=== PATIENT | male | born 1990 | race Caucasian/White ===

== ENCOUNTER 2020-08-02 15:34 | Emergency (ER) | payer BC, SELFPAY ==
[2020-08-02 15:55] VITALS: BP 149/79; PULSE 75; RESP 18; TEMP 36.4; O2SAT 100; BMI 35.9
--- NOTE | 2020-08-02 16:14 | HMH.EDUTC ---
[facility] [place] Clinical Impression: Dog bite Qualifiers: Encounter type: initial encounter Qualified Code(s): W54.0XXA - Bitten by dog, initial encounter Disposition: Home, Self-Care Condition on Discharge: Good Instructions: DI for Dog Bite, Amoxicillin and Clavulanic Acid Additional Instructions: Keep wound area clean and dry and cover with non-stick bandage if you are going to be outside Clean with antibacterial soap and water and pat dry Take antibiotics as prescribed Return if needed Straight to ER if any life threatening symptoms Follow up with Family Doctor if needed Prescriptions: Amoxicillin/Potassium Clav [Augmentin 500mg tab] 500 mg PO TID #21 tab Transmission Status: Pending to [facility] Referrals: Provider,Referral, MD [Primary Care Provider] - As needed Time of Disposition: 16:21 Medical Decision Making - Michael Inquiry Pt receiving controlled substance: No Michael was queried for this patient: No Vital Signs: 08/02/20 15:55 Temperature 97.5 F L Temperature Source Oral Pulse Rate [Right] 75 Respiratory Rate 18 Blood Pressure [Right Arm] 149/79 H Blood Pressure Mean [Right Arm] 102 Blood Pressure Source [Right Arm] Automatic Cuff Blood Pressure Position [Right Arm] Sitting 02 Sat by Pulse Oximetry 100 Medical Decision Narrative: wound cleaned well with hibacleanse and saline [facility] [place] - General Stated complaint: [id number]@1200 dog bite right forearm Time Seen by Provider: 08/02/20 16:15 Mode of Arrival: Ambulatory Source of Information: Patient Limitations: No Limitations Description of Symptoms (Recalled from Triage Doc. by RN): pt states he was bitten by a dog yesterday around noon. pt works in [employer] and was at a clients house. he says the dog, ran up and grabbed me with his mouth. pt states it was unprovoked and not aggressive. pt has an opening under his R forearm. 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 [employer] State that he was at a clients house yesterday when he was bitten on his right forearm States that he cleaned it up and put some neosporin on it States that he was unsure when his last tetanus was so he thought he better come in and get one see if he may need antibiotics - Related Data Previous Rx's Medication Instructions Recorded Colchicine 0.6 mg PO Q1H PRN #3 tablet 01/01/18 Amoxicillin/Potassium Clav 500 mg PO TID #21 tab 08/02/20 [Augmentin 500mg tab] Allergies Allergy/AdvReac Type Severity Reaction Status Date / Time No Known Allergies Allergy Verified 01/01/18 09:57 - Worker's Comp Is this a Worker's Comp case?: No [facility] History - Hepatitis A Screen Drug use history?: No High risk sexual behaviors?: No History of sexually transmitted infection?: No Currently employed?: No Childcare worker?: No Do you have indoor plumbing?: Yes Do you have electricity?: Yes Attestation statement:: This patient has been screened for Hepatitis A risk factors. I have reviewed the patient's past medical history: Yes Other Surgeries: Yes: No Previous Surgery - Social History Alcohol Intake: never ROS Obtained: Yes All systems reviewed & no additional complaints, Yes Systems reviewed as appropriate & no additional complaints - Constitutional Constitutional: Reports system reviewed and no additional complaints, except as docu - ENT Ears, Nose, Mouth, and Throat: Reports system reviewed and no additional complaints, except as docu - Cardiovascular Cardiovascular: Reports system reviewed and no additional complaints, except as docu - Respiratory Respiratory: Reports system reviewed and no additional complaints, except as docu
[2020-08-02 16:52] VITALS: BP 143/82; PULSE 76; RESP 16; TEMP 36.4
== END 2020-08-02 16:52 | disposition home or self-care (01) ==
PROVIDERS: Emergency Provider Nurse Practitioner
DX: S51.831A Puncture wound without foreign body of right forearm, initial encounter (principal); W54.0XXA Bitten by dog, initial encounter
CPT/HCPCS: 96372; 99202; G0463

== ENCOUNTER 2021-04-14 11:41 | Emergency (ER) | payer BC, SELFPAY ==
[2021-04-14 11:54] VITALS: BP 156/82; PULSE 92; RESP 20; TEMP 36.4; O2SAT 95; BMI 39.5
--- NOTE | 2021-04-14 12:09 | HMH.EDUTC ---
[facility] [place] Dis[place] Clinical Impression: Viral syndrome, Bronchitis Sinusitis Qualifiers: Sinusitis location: unspecified location Chronicity: acute Recurrence: non-recurrent Qualified Code(s): J01.90 - Acute sinusitis, unspecified Disposition: Home, Self-Care Condition on Discharge: Good Instructions: Acute Bronchitis, DI for Sinusitis, DI for Acute Bronchitis, DI for Viral Syndrome, DI for COVID-19 (Suspected or Confirmed ), Preventing the Spread of Coronavirus Discharge Instructions Additional Instructions: Drink plenty of fluids. Take tylenol or ibuprofen for pain or fever. Take the medications as directed. Follow up with your regular doctor. GO TO THE ER FOR ANY WORSENING SYMPTOMS You need to be covid-19 tested. Your symptoms seem like viral symptoms and covid-19 is going around really bad right now. So, it is likely that you have been exposed to it. Prescriptions: Brompheniramine/Pseudoephed/Dm [Bromfed Dm Cough Syrup] 5 ml PO Q6HP PRN #240 ml PRN Reason: Cough Transmission Status: Received by [facility] methylPREDNISolone [Medrol] 4 mg PO DIRECTED 6 Days #21 packet Transmission Status: Received by [facility] Azithromycin [Z-Curtis 250mg Tab*] 250 mg PO UD DOSE PK #6 tab Transmission Status: Received by [facility] Referrals: Provider,Referral, [Primary Care Provider] - Forms: Work/School Release Time of Disposition: 13:22 Medical Decision Making - Medical Records Medical records reviewed: No: I reviewed the patient's medical records. - Michael Inquiry Pt receiving controlled substance: No Vital Signs: 04/14/21 11:54 04/14/21 12:55 Temperature 97.6 F 97.6 F Temperature Source Temporal Artery Scan Pulse Rate 92 H Pulse Rate [Left] 92 H Respiratory Rate 20 20 Blood Pressure 156/82 H Blood Pressure [Right Arm] 156/82 H Blood Pressure Mean [Right Arm] 106 02 Sat by Pulse Oximetry 95 - Lab Data Lab Results 04/14/21 11:56: Group A Strep Rapid Negative Orders (Tests/Meds): ORDERS Category Date Time Status Strep Screen Confirmation Stat Micro 04/14/21 11:56 Received Medical Decision Narrative: He adamantly refused covid-19 testing or any viral testing. [facility] [place] HPI - General Stated complaint: sinus, ESCOBAR, chest congestion, sore throat Time Seen by Provider: 04/14/21 12:09 Mode of Arrival: Ambulatory Source of Information: Patient Limitations: No Limitations Description of Symptoms (Recalled from Triage Doc. by RN): pt c/o sinus pressure. fever, chest congestion, sore throat, cough and ESCOBAR. x1 wk HEENT Symptoms (Recalled from RN notes): Yes Resp Symptoms (Recalled from RN notes): Yes Skin Symptoms (Recalled from RN notes): No MS Symptoms (Recalled from RN notes): No Functional Status (Recalled from RN notes): wnl - History of Present Illness Provider Complaint: He states that he has had low grade fever, chills, body aches, chest congestion, a nonproductive cough, sore throat and he has felt bad for the past week. He has felt progressively worse as time went on. He has been running a low grade fever too. He has not been vaccinated against covid-19. - Related Data Previous Rx's Medication Instructions Recorded Colchicine 0.6 mg PO Q1H PRN #3 tablet 01/01/18 Amoxicillin/Potassium Clav 500 mg PO TID #21 tab 08/02/20 [Augmentin 500mg tab] Azithromycin [Z-Curtis 250mg Tab*] 250 mg PO UD DOSE PK #6 tab 04/14/21 Brompheniramine/Pseudoephed/Dm 5 ml PO Q6HP PRN #240 ml 04/14/21 [Bromfed Dm Cough Syrup] methylPREDNISolone [Medrol] 4 mg PO DIRECTED 6 Days #21 04/14/21 packet Allergies Allergy/AdvReac Type Severity Reaction Status Date / Time No Known Allergies Allergy Verified 01/01/18 09:57 - Worker's Comp Is this a Worker's Comp case?: No [facility] History - Hepatitis A Screen Drug use history?: No High risk sexual behaviors?: No History of sexually transmitted infection?: No Currently employed
[2021-04-14 12:20] LABS: Strep Scrn Group A (Rapid) Negative (Negative)
[2021-04-14 12:55] VITALS: BP 156/82; PULSE 92; RESP 20; TEMP 36.4
== END 2021-04-14 13:36 | disposition home or self-care (01) ==
PROVIDERS: Emergency Provider Nurse Practitioner Family
DX: J20.9 Acute bronchitis, unspecified (principal); J01.90 Acute sinusitis, unspecified; B34.9 Viral infection, unspecified
CPT/HCPCS: 87430; 99202; G0463

== ENCOUNTER → 2021-04-15 11:04 | Outpatient (CLI) | payer BC, SELFPAY | PROVIDERS: Visit Provider Nurse Practitioner | DX: Z20.822 Contact with and (suspected) exposure to COVID-19 (principal) | CPT/HCPCS: C9803; U0003; U0005 ==

== ENCOUNTER 2021-06-04 10:49 | Emergency (ER) | payer BC, SELFPAY ==
[2021-06-04 11:12] VITALS: BP 154/92; PULSE 103; RESP 20; O2SAT 97; BMI 36.3
--- NOTE | 2021-06-04 11:23 | XR_ITS ---
FINAL REPORT CLINICAL HISTORY: fall, pt fell on a large rock c/o lt knee pain FINDINGS: LEFT ANKLE Three views of the left ankle were obtained. There is no acute fracture or dislocation. The joint spaces and mortise are intact. There is no soft tissue abnormality. IMPRESSION: No acute bony abnormality. Reviewed, Interpreted and Dictated by Solomon Orr III, MD Transcribed by Queta Kang Authenticated by Solomon Orr III, MD on 06/04/2021 12:37:07 PM [facility]
--- NOTE | 2021-06-04 11:23 | XR_ITS ---
FINAL REPORT CLINICAL HISTORY: fall, pt fell on a large rock c/o lt knee pain FINDINGS: LEFT TIBIA FIBULA 2 views were obtained. There is no acute fracture or dislocation. The visualized joint spaces are intact. There is no soft tissue abnormality. IMPRESSION: No acute fracture Reviewed, Interpreted and Dictated by Solomon Orr III, MD Transcribed by Queta Kang Authenticated by Solomon Orr III, MD on 06/04/2021 12:37:08 PM [facility]
--- NOTE | 2021-06-04 11:23 | XR_ITS ---
FINAL REPORT CLINICAL HISTORY: fall, pt fell on a large rock c/o lt knee pain FINDINGS: Three views of the left knee reveal no evidence of fracture or dislocation. The bony alignment is normal. The joint spaces are preserved. There is a moderate joint effusion. IMPRESSION: Moderate joint effusion without acute abnormality identified. Reviewed, Interpreted and Dictated by Solomon Orr III, MD Transcribed by Queta Kang Authenticated by Solomon Orr III, MD on 06/04/2021 12:37:10 PM [facility]
[2021-06-04 11:26] VITALS: BP 148/101; PULSE 86; RESP 18; TEMP 36.7; O2SAT 95; BMI 36.3
--- NOTE | 2021-06-04 12:17 | HMH.EDUTC ---
[facility] [place] Dis[place] Clinical Impression: Left knee sprain Qualifiers: Encounter type: initial encounter Involved ligament of knee: unspecified ligament Qualified Code(s): S83.92XA - Sprain of unspecified site of left knee, initial encounter Disposition: Home, Self-Care Condition on Discharge: Good Instructions: How to Use Crutches, Knee Sprain, DI for Knee Sprain, How to Use a Knee Immobilizer Additional Instructions: Rest the extremity, apply ice for 15 minutes as tolerated three or four times per day, Elevate the extremity as tolerated while you are resting. Take ibuprofen for pain. Follow up with Dr. Escobar (orthopedics). I put in a referral but you need to call his office and schedule an appointment. Follow up with your regular doctor. GO TO THE ER FOR ANY WORSENING SYMPTOMS Prescriptions: Ibuprofen [Ibuprofen 800mg Tablet] 800 mg PO Q8HP PRN #30 tab PRN Reason: Moderate Pain Transmission Status: Received by [facility] Referrals: Provider,MD Marie [Primary Care Provider] - Richmond Escobar MD [Staff Physician] - Medical Decision Making - Medical Records Medical records reviewed: Yes: I reviewed the patient's medical records. - Michael Inquiry Pt receiving controlled substance: No Vital Signs: 06/04/21 11:12 06/04/21 11:26 06/04/21 13:00 Temperature 98.1 F 98.1 F Temperature Source Oral Oral Pulse Rate 86 Pulse Rate [Left Radial] 103 H 86 Respiratory Rate 20 18 19 Blood Pressure 148/95 H Blood Pressure [Right Arm] 154/92 H 148/101 H Blood Pressure Mean [Right Arm] 112 116 Blood Pressure Source Automatic Cuff Blood Pressure Source [Right Arm] Automatic Cuff Automatic Cuff Blood Pressure Position Sitting Blood Pressure Position [Right Arm] Sitting Sitting 02 Sat by Pulse Oximetry 97 95 Oxygen Delivery Method Room Air Room Air Room Air - Lab Data Lab results reviewed: Yes: I reviewed the patient's lab results. [facility] [place] HPI - General Stated complaint: AO fall 05/28 lt knee pain Time Seen by Provider: 06/04/21 12:18 Mode of Arrival: Ambulatory Source of Information: Patient Limitations: No Limitations Description of Symptoms (Recalled from Triage Doc. by RN): Pt states that fell on left knee. Swollen from knee down HEENT Symptoms (Recalled from RN notes): No Resp Symptoms (Recalled from RN notes): No Skin Symptoms (Recalled from RN notes): No MS Symptoms (Recalled from RN notes): Yes Functional Status (Recalled from RN notes): n/a - History of Present Illness Provider Complaint: He states that he fell 1 week ago and came down on his left knee. He states that since then he has had left knee pain and swelling. He is able to walk on it, but bearing weight causes it hurt worse. - Related Data Previous Rx's Medication Instructions Recorded Colchicine 0.6 mg PO Q1H PRN #3 tablet 01/01/18 Ibuprofen [Ibuprofen 800mg 800 mg PO Q8HP PRN #30 tab 06/04/21 Tablet] Allergies Allergy/AdvReac Type Severity Reaction Status Date / Time No Known Allergies Allergy Verified 06/04/21 11:31 - Worker's Comp Is this a Worker's Comp case?: No [facility] History - Hepatitis A Screen Drug use history?: No High risk sexual behaviors?: No History of sexually transmitted infection?: No Currently employed?: No Childcare worker?: No Do you have indoor plumbing?: Yes Do you have electricity?: Yes Attestation statement:: This patient has been screened for Hepatitis A risk factors. I have reviewed the patient's past medical history: Yes Other Surgeries: Yes: No Previous Surgery - Social History Alcohol Intake: never ROS Obtained: Yes All systems reviewed & no additional complaints - Constitutional Constitutional: Denies chills, Denies fever(s) - Musculoskeletal Musculoskeletal: Reports as per HPI - Integumentary/Breasts Skin/Breast: Denies redness, Denies rash, Denies wounds - Neurologic Neurologic: Denies tingling/numbness/burning sensati
[2021-06-04 13:00] VITALS: BP 148/95; PULSE 86; RESP 19; TEMP 36.7; O2SAT 95
== END 2021-06-04 13:00 | disposition home or self-care (01) ==
PROVIDERS: Emergency Provider Nurse Practitioner Family
DX: S83.92XA Sprain of unspecified site of left knee, initial encounter (principal); W01.0XXA Fall on same level from slipping, tripping and stumbling without subsequent striking against object, initial encounter; Y92.9 Unspecified place or not applicable
CPT/HCPCS: 29505; 73562; 73590; 73610; 99212; G0463

== ENCOUNTER 2021-08-14 14:12 | Emergency (ER) | payer BC, SELFPAY ==
[2021-08-14 14:27] VITALS: BP 151/92; PULSE 73; RESP 17; TEMP 36.8; O2SAT 96; BMI 38.2
--- NOTE | 2021-08-14 15:05 | HMH.EDUTC ---
[facility] [place] Disposition Clinical Impression: Gout attack Qualifiers: Gout site: wrist Gout etiology: unspecified cause Laterality: right Qualified Code(s): M10.9 - Gout, unspecified Disposition: Home, Self-Care Condition on Discharge: Good Instructions: Gout, DI for Gout, Colchicine Additional Instructions: Take medication as prescribed Follow up with your Family Doctor for daily treatment for gout prevention Return if needed Straight to ER if any life threatening symptoms Prescriptions: Colchicine [Colcrys 0.6mg tablet] 0.6 mg PO DIRECTED #6 tab Transmission Status: Received by [facility] Referrals: Provider,Referral, [Primary Care Provider] - As needed Time of Disposition: 15:19 Medical Decision Making - Michael Inquiry Pt receiving controlled substance: No Michael was queried for this patient: No Vital Signs: 08/14/21 14:27 08/14/21 15:29 Temperature 98.2 F 98.2 F Temperature Source Oral Pulse Rate 73 Pulse Rate [Left Radial] 73 Respiratory Rate 17 17 Blood Pressure 151/92 H Blood Pressure [Right Arm] 151/92 H Blood Pressure Mean [Right Arm] 111 02 Sat by Pulse Oximetry 96 - Lab Data Lab results reviewed: Yes: I reviewed the patient's lab results. Lab Results 08/14/21 14:35: Uric Acid 11.0 H Orders (Tests/Meds): ED MEDICATIONS Discontinued Medications Generic Name Dose Route Start Last Admin Trade Name Mesha PRN Reason Stop Dose Admin Ketorolac Tromethamine 60 mg 08/14/21 15:15 08/14/21 15:27 Ketorolac 60mg/2ml Vial IM 08/14/21 15:16 60 mg ONCE ONE Administration Methylprednisolone Sodium Succinate 125 mg 08/14/21 15:15 08/14/21 15:28 Methylprednisolone Sod Succ 125mg Vial IM 08/14/21 15:16 125 mg ONCE ONE Administration [facility] [place] HPI - General Stated complaint: rt wrist pain Time Seen by Provider: 08/14/21 14:35 Description of Symptoms (Recalled from Triage Doc. by RN): patient comes in with right wrist pain that began friday HEENT Symptoms (Recalled from RN notes): No Resp Symptoms (Recalled from RN notes): No Skin Symptoms (Recalled from RN notes): No MS Symptoms (Recalled from RN notes): Yes Functional Status (Recalled from RN notes): wnl - History of Present Illness Provider Complaint: Patient states that he has been having pain in his right wrist since Friday with no injury States that feels like it does when he has gout States that hurts with movement swollen and red - Related Data Previous Rx's Medication Instructions Recorded Colchicine 0.6 mg PO Q1H PRN #3 tablet 01/01/18 Ibuprofen [Ibuprofen 800mg 800 mg PO Q8HP PRN #30 tab 06/04/21 Tablet] Colchicine [Colcrys 0.6mg tablet] 0.6 mg PO DIRECTED #6 tab 08/14/21 Allergies Allergy/AdvReac Type Severity Reaction Status Date / Time No Known Allergies Allergy Verified 06/04/21 11:31 - Worker's Comp Is this a Worker's Comp case?: No [facility] History - Hepatitis A Screen Attestation statement:: This patient has been screened for Hepatitis A risk factors. I have reviewed the patient's past medical history: Yes Other Surgeries: Yes: No Previous Surgery - Social History Alcohol Intake: never ROS Obtained: Yes All systems reviewed & no additional complaints, Yes Systems reviewed as appropriate & no additional complaints - Constitutional Constitutional: Reports system reviewed and no additional complaints, except as docu, Denies body ache, Denies chills, Denies fever(s) - ENT Ears, Nose, Mouth, and Throat: Reports system reviewed and no additional complaints, except as docu - Cardiovascular Cardiovascular: Reports system reviewed and no additional complaints, except as docu - Respiratory Respiratory: Reports system reviewed and no additional complaints, except as docu - Gastrointestinal Gastrointestingal: Reports: system reviewed and no additional complaints, except as docu - Musculoskeletal Musculoskeletal: Reports system reviewed and no a
[2021-08-14 15:29] VITALS: BP 151/92; PULSE 73; RESP 17; TEMP 36.8
== END 2021-08-14 15:39 | disposition home or self-care (01) ==
PROVIDERS: Emergency Provider Nurse Practitioner
DX: M10.9 Gout, unspecified (principal); M25.531 Pain in right wrist; Z79.1 Long term (current) use of non-steroidal anti-inflammatories (NSAID)
CPT/HCPCS: 84550; 99213; G0463

== ENCOUNTER 2021-09-26 11:56 | Emergency (ER) | payer BC, SELFPAY ==
[2021-09-26 12:37] VITALS: BP 140/80; PULSE 82; RESP 19; TEMP 37; O2SAT 98; BMI 36.6
--- NOTE | 2021-09-26 12:41 | HMH.EDUTC ---
[facility] [place] Disposition Clinical Impression: Sinusitis Qualifiers: Sinusitis location: unspecified location Chronicity: unspecified Qualified Code(s): J32.9 - Chronic sinusitis, unspecified Gout attack Qualifiers: Gout site: unspecified site Gout etiology: unspecified cause Qualified Code(s): M10.9 - Gout, unspecified Disposition: Home, Self-Care Condition on Discharge: Good Instructions: Sinusitis, Gout, DI for Sinusitis, DI for Gout Additional Instructions: *Monitor Temp, Over the counter Motrin or Tylenol as directed/as needed Tylenol every 4 hours and Motrin every 6 hours (as long as your family doctor has told you that you can take it) for fever or pain. and straight to ER if unable to lower temp less than 101.0 after medication given *Warm salt water gargles may help to soothe the throat *Throat Lozenges *Warm fluids like tea with honey may help to soothe the throat *Sleep elevated *Humidifier/Vaporizer Take medication as prescribed Follow up IMMEDIATELY for new or worsening symptoms or no Noticeable improvement over the next 48-72 hours. 911 for difficulty breathing or swallowing Prescriptions: Indomethacin 50 mg PO TID #15 cap [facility] methylPREDNISolone [Medrol 4mg tab] 4 mg PO DIRECTED #21 tab [facility]: [facility] Azithromycin [Z-Curtis 250mg Tab] 250 mg PO DIRECTED #6 tab Transmission Status: Pending to [facility] Referrals: Provider,Referral, [Primary Care Provider] - Time of Disposition: 13:02 Medical Decision Making - Michael Inquiry Pt receiving controlled substance: No Michael was queried for this patient: No Vital Signs: 09/26/21 12:37 Temperature 98.6 F Temperature Source Oral Pulse Rate [Left] 82 Respiratory Rate 19 Blood Pressure [Right Arm] 140/80 Blood Pressure Mean [Right Arm] 100 02 Sat by Pulse Oximetry 98 Medical Decision Narrative: Patient declined blood work states that he is out of his indomethacin for gout and feels like he is having a flare in right ankle [facility] [place] HPI - General Stated complaint: sore throat, cough Time Seen by Provider: 09/26/21 12:41 Mode of Arrival: Ambulatory Source of Information: Patient Limitations: No Limitations Description of Symptoms (Recalled from Triage Doc. by RN): patient comes in for gout in right ankle since friday. sinus pressure and cough that began friday HEENT Symptoms (Recalled from RN notes): Yes Resp Symptoms (Recalled from RN notes): Yes Skin Symptoms (Recalled from RN notes): No MS Symptoms (Recalled from RN notes): Yes Functional Status (Recalled from RN notes): n/a - History of Present Illness Provider Complaint: Patient states that he is having flare up from gout and is out of his indomethacin also states that he has also been having sinus pain and pressure that has continued to get worse over the last few days and feels like he has a sinus infection - Related Data Previous Rx's Medication Instructions Recorded Colchicine 0.6 mg PO Q1H PRN #3 tablet 01/01/18 Ibuprofen [Ibuprofen 800mg 800 mg PO Q8HP PRN #30 tab 06/04/21 Tablet] Colchicine [Colcrys 0.6mg tablet] 0.6 mg PO DIRECTED #6 tab 08/14/21 Azithromycin [Z-Curtis 250mg Tab] 250 mg PO DIRECTED #6 tab 09/26/21 Indomethacin 50 mg PO TID #15 cap 09/26/21 methylPREDNISolone [Medrol 4mg 4 mg PO DIRECTED #21 tab 09/26/21 tab] Allergies Allergy/AdvReac Type Severity Reaction Status Date / Time No Known Allergies Allergy Verified 09/26/21 12:39 - Worker's Comp Is this a Worker's Comp case?: No [facility] History - Hepatitis A Screen Attestation statement:: This patient has been screened for Hepatitis A risk factors. I have reviewed the patient's past medical history: Yes Other Surgeries: Yes: No Previous Surgery - Social History Alcohol Intake: never ROS Obtained: Yes All systems reviewed & no additional complaints, Yes Systems r
[2021-09-26 13:03] VITALS: BP 140/80; PULSE 82; RESP 19; TEMP 37
== END 2021-09-26 13:07 | disposition home or self-care (01) ==
PROVIDERS: Emergency Provider Nurse Practitioner
DX: J32.9 Chronic sinusitis, unspecified (principal); M10.9 Gout, unspecified
CPT/HCPCS: 99212; G0463

== ENCOUNTER 2021-11-06 17:50 | Emergency (ER) | payer BC, SELFPAY ==
--- NOTE | 2021-11-06 19:25 | EXP.UTC ---
Discharge Plan Disposition Patient Disposition: Home, Self-Care Condition: Good Prescriptions Prescriptions: New methylprednisolone 4 mg Tablets,Dose Pack 4 mg PO DIRECTED Qty: 21 0RF No Action azithromycin 250 MG tablet 250 mg PO DIRECTED Qty: 6 0RF Rx Instructions: Take two (2) tablets on day #1, then one (1) tablet day #2 thru #5 methylprednisolone 4 MG tablet 4 mg PO DIRECTED Qty: 21 0RF Rx Instructions: Take as directed on package instructions indomethacin 50 MG capsule 50 mg PO TID Qty: 15 0RF Rx Instructions: as needed for gout colchicine 0.6 MG tablet 0.6 mg PO Q1H PRN (Reason: Moderate Pain) Qty: 3 0RF Rx Instructions: as needed for left elbow gout attack ibuprofen 800 MG tablet 800 mg PO Q8HP PRN (Reason: Moderate Pain) Qty: 30 0RF colchicine 0.6 MG tablet 0.6 mg PO DIRECTED Qty: 6 0RF Rx Instructions: Take 2 tablets (1.2mg) now followed by 1 tablet (0.6mg) 1 hour later. May repeat treatment in 72 hours if still having symptoms Referrals Follow up/Referrals: Provider,Referral, MD [Primary Care Provider] - See instructions Activity Restrictions/Add. Instructions Additional Instructions/Restrictions: Drink plenty of fluids. Take the medications as directed. Follow up with your regular doctor. GO TO THE ER FOR ANY WORSENING SYMPTOMS Clinical Impressions Clinical Impression: Gout Instructions Patient Instructions: Marc DI for Gout Discharge ED Provider: Gabriel Frank [facility] General Stated complaint: gout Time Seen by Provider: 11/06/21 19:25 History of Present Illness Provider Complaint: He c/o left wrist pain for the past 2 days. He denies any injury. He states that he has a history of gout and that is what he is having at this time. Related Data Previous Rx's Medication Instructions Recorded colchicine 0.6 mg tablet 0.6 mg PO Q1H PRN Moderate Pain #3 01/01/18 tabs ibuprofen 800 mg tablet 800 mg PO Q8HP PRN Moderate Pain 06/04/21 #30 tabs colchicine 0.6 mg tablet 0.6 mg PO DIRECTED #6 tabs 08/14/21 azithromycin 250 mg tablet 250 mg PO DIRECTED #6 tabs 09/26/21 indomethacin 50 mg capsule 50 mg PO TID #15 caps 09/26/21 methylprednisolone 4 mg tablet 4 mg PO DIRECTED #21 tabs 09/26/21 methylprednisolone 4 mg tablets in 4 mg PO DIRECTED #21 tabs 11/06/21 a dose pack Allergies Allergy/AdvReac Type Severity Reaction Status Date / Time No Known Allergies Allergy Verified 11/06/21 19:33 PFSH [facility] Social History Smoking Status: Never smoker alcohol intake: never current occupational status: unemployed Travel in the last 8 weeks: None ROS Obtained: Yes All systems reviewed & no additional complaints except as documented Constitutional Constitutional: Reports system reviewed and no additional complaints, except as documented, Denies chills and Denies fever(s) Eyes Eyes: Denies eye discharge ENT Ears, Nose, Mouth, and Throat: Denies dysphagia, Denies sore throat and Denies throat swelling Cardiovascular Cardiovascular: Denies chest pain and Denies dyspnea Respiratory Respiratory: Denies chest congestion, Denies cough and Denies dyspnea Gastrointestinal Gastrointestingal: Denies abdominal pain, constipation, diarrhea, dysphagia, nausea or vomiting Musculoskeletal Musculoskeletal: Reports arthralgias Integumentary/Breasts Skin/Breast: Denies rash Neurologic Neurologic: Denies paresthesias Allergic/Immunologic Allergic/Immunologic: Denies throat swelling Physical Exam General General appearance: alert and in no apparent distress Head Head exam: atraumatic, normocephalic and normal inspection Eye Eye exam: Present normal appearance, PERRL and EOMI ENT ENT exam: Present normal exam, normal oropharynx, mucous membranes moist, TM's normal bilaterally and normal external ear exam Neck Neck exam: Present normal
[2021-11-06 19:29] VITALS: BP 100/67; PULSE 95; RESP 18; TEMP 36.6; O2SAT 99; BMI 36.9
[2021-11-06 20:17] VITALS: BP 100/67; PULSE 95; RESP 18; TEMP 36.6
== END 2021-11-06 20:17 | disposition home or self-care (01) ==
PROVIDERS: Emergency Provider Nurse Practitioner Family
DX: M25.532 Pain in left wrist (principal); M10.9 Gout, unspecified; Z79.1 Long term (current) use of non-steroidal anti-inflammatories (NSAID); Z79.52 Long term (current) use of systemic steroids; Z56.0 Unemployment, unspecified
CPT/HCPCS: 96372; 99213; G0463

== ENCOUNTER 2021-11-18 12:21 | Emergency (ER) | payer BC, SELFPAY ==
--- NOTE | 2021-11-18 12:54 | XR_ITS ---
PROCEDURE INFORMATION: Exam: XR Left Wrist Exam date and time: 11/18/2021 12:52 PM Age: 31 years old Clinical indication: Pain; Wrist; Left; Additional info: Pain and swelling TECHNIQUE: Imaging protocol: Radiologic exam of the Left wrist. Views: 3 or more views. COMPARISON: CR [id number] XR elbow LT min 3V 01/01/2018 10:24 AM FINDINGS: Bones/joints: Nonspecific rounded lucent lesion in the scaphoid bone measures 5 mm. No acute fracture. No dislocation. Soft tissues: Normal. IMPRESSION: Nonspecific rounded lucent lesion in the scaphoid bone measures 5 mm. No acute fracture.
[2021-11-18 12:55] VITALS: BP 131/86; PULSE 77; RESP 19; TEMP 36.4; O2SAT 98; BMI 36.9
--- NOTE | 2021-11-18 13:27 | EXP.UTC ---
Discharge Plan Disposition Patient Disposition: Home, Self-Care Condition: Good Prescriptions Prescriptions: New indomethacin 50 mg capsule 50 mg PO TID 5 Days Qty: 15 0RF Rx Instructions: administer with food or milk Continued colchicine 0.6 MG tablet 0.6 mg PO Q1H PRN (Reason: Moderate Pain) Qty: 3 0RF Rx Instructions: as needed for left elbow gout attack colchicine 0.6 MG tablet 0.6 mg PO DIRECTED Qty: 6 0RF Rx Instructions: Take 2 tablets (1.2mg) now followed by 1 tablet (0.6mg) 1 hour later. May repeat treatment in 72 hours if still having symptoms indomethacin 50 MG capsule 50 mg PO TID Qty: 15 0RF Rx Instructions: as needed for gout No Action azithromycin 250 MG tablet 250 mg PO DIRECTED Qty: 6 0RF Rx Instructions: Take two (2) tablets on day #1, then one (1) tablet day #2 thru #5 methylprednisolone 4 MG tablet 4 mg PO DIRECTED Qty: 21 0RF Rx Instructions: Take as directed on package instructions ibuprofen 800 MG tablet 800 mg PO Q8HP PRN (Reason: Moderate Pain) Qty: 30 0RF methylprednisolone 4 mg Tablets,Dose Pack 4 mg PO DIRECTED Qty: 21 0RF Referrals Follow up/Referrals: Provider,Referral, MD [Primary Care Provider] - See instructions Clinical Impressions Clinical Impression: Gout attack Discharge ED Provider: Yohan ([facility] [place] General Stated complaint: possible gout Mode of Arrival: Ambulatory Source of Information: Patient Limitations: No Limitations Time Seen by Provider: 11/18/21 13:27 Description of Symptoms (Recalled from Triage Doc. by RN): pt comes in with c/o gout pain in left wrist for 2 weeks. HEENT Symptoms (Recalled from RN notes): No Resp Symptoms (Recalled from RN notes): No Skin Symptoms (Recalled from RN notes): No MS Symptoms (Recalled from RN notes): Yes Functional Status (Recalled from RN notes): n/a History of Present Illness Provider Complaint: 31 yr old male presents for left wrist pain. hx of gout Related Data Previous Rx's Medication Instructions Recorded colchicine 0.6 mg tablet 0.6 mg PO Q1H PRN Moderate Pain #3 01/01/18 tabs ibuprofen 800 mg tablet 800 mg PO Q8HP PRN Moderate Pain 06/04/21 #30 tabs colchicine 0.6 mg tablet 0.6 mg PO DIRECTED #6 tabs 08/14/21 azithromycin 250 mg tablet 250 mg PO DIRECTED #6 tabs 09/26/21 methylprednisolone 4 mg tablet 4 mg PO DIRECTED #21 tabs 09/26/21 methylprednisolone 4 mg tablets in 4 mg PO DIRECTED #21 tabs 11/06/21 a dose pack indomethacin 50 mg capsule 50 mg PO TID #15 caps 11/18/21 indomethacin 50 mg capsule 50 mg PO TID 5 days #15 caps 11/18/21 Allergies Allergy/AdvReac Type Severity Reaction Status Date / Time No Known Allergies Allergy Verified 11/18/21 13:16 Worker's Comp Is this a Worker's Comp case?: No PFSH PFSH Social History , [employer]) Smoking Status: Never smoker alcohol intake: never current occupational status: unemployed Travel in the last 8 weeks: None ROS Obtained: Yes All systems reviewed & no additional complaints except as documented Constitutional Constitutional: Reports system reviewed and no additional complaints, except as documented Eyes Eyes: Reports system reviewed and no additional complaints, except as documented ENT Ears, Nose, Mouth, and Throat: Reports system reviewed and no additional complaints, except as documented Cardiovascular Cardiovascular: Reports system reviewed and no additional complaints, except as documented Gastrointestinal Gastrointestingal: Reports system reviewed and no additional complaints, except as documented Musculoskeletal Musculoskeletal: Reports system reviewed and no additional complaints, except as documented, Reports arthralgias and Reports limited range of motion Integumentary/Breasts Skin/Breast: Reports system reviewed and no additional complaints, except as docum
[2021-11-18 13:41] VITALS: BP 131/86; PULSE 77; RESP 19; TEMP 36.4
== END 2021-11-18 13:42 | disposition home or self-care (01) ==
PROVIDERS: Emergency Provider Nurse Practitioner Family
DX: M10.9 Gout, unspecified (principal)
CPT/HCPCS: 73110; 99212; G0463

== ENCOUNTER 2022-01-01 10:51 | Emergency (ER) | payer BC, SELFPAY ==
--- NOTE | 2022-01-01 12:37 | EXP.UTC ---
Discharge Plan Disposition Patient Disposition: Home, Self-Care Condition: Good Prescriptions Prescriptions: New indomethacin 50 mg capsule 50 mg PO TID PRN (Reason: pain, moderate) Qty: 20 0RF Rx Instructions: administer with food or milk No Action azithromycin 250 MG tablet 250 mg PO DIRECTED Qty: 6 0RF Rx Instructions: Take two (2) tablets on day #1, then one (1) tablet day #2 thru #5 methylprednisolone 4 MG tablet 4 mg PO DIRECTED Qty: 21 0RF Rx Instructions: Take as directed on package instructions colchicine 0.6 MG tablet 0.6 mg PO Q1H PRN (Reason: Moderate Pain) Qty: 3 0RF Rx Instructions: as needed for left elbow gout attack ibuprofen 800 MG tablet 800 mg PO Q8HP PRN (Reason: Moderate Pain) Qty: 30 0RF colchicine 0.6 MG tablet 0.6 mg PO DIRECTED Qty: 6 0RF Rx Instructions: Take 2 tablets (1.2mg) now followed by 1 tablet (0.6mg) 1 hour later. May repeat treatment in 72 hours if still having symptoms methylprednisolone 4 mg Tablets,Dose Pack 4 mg PO DIRECTED Qty: 21 0RF indomethacin 50 MG capsule 50 mg PO TID Qty: 15 0RF Rx Instructions: as needed for gout indomethacin 50 mg capsule 50 mg PO TID 5 Days Qty: 15 0RF Rx Instructions: administer with food or milk Referrals Follow up/Referrals: Aranza Parnell APRN [Primary Care Provider] - See instructions Activity Restrictions/Add. Instructions Additional Instructions/Restrictions: Rest the extremity. Don't start the oral steroids until tomorrow since you are taking shot today. I sent in a prescription for indomethacin per your request, but don't take this while you are on the steroids because these medications will do essentially the same thing. Follow up with your regular doctor. GO TO THE ER FOR ANY WORSENING SYMPTOMS Clinical Impressions Clinical Impression: Gout attack Instructions Patient Instructions: Gout, DI for Gout, Methylprednisolone Injection Discharge ED Provider: Gabriel Frank [facility] General Stated complaint: Possible gout Time Seen by Provider: 01/01/22 12:36 History of Present Illness Provider Complaint: He states that for the past 2 days he has had worsening right hand and wrist pain. He attributes this to his gout. He request a steroid shot. His pcp has prescribed oral prednisone, but he states that starting out with a steroid shot works best. Related Data Previous Rx's Medication Instructions Recorded colchicine 0.6 mg tablet 0.6 mg PO Q1H PRN Moderate Pain #3 01/01/18 tabs ibuprofen 800 mg tablet 800 mg PO Q8HP PRN Moderate Pain 06/04/21 #30 tabs colchicine 0.6 mg tablet 0.6 mg PO DIRECTED #6 tabs 08/14/21 azithromycin 250 mg tablet 250 mg PO DIRECTED #6 tabs 09/26/21 methylprednisolone 4 mg tablet 4 mg PO DIRECTED #21 tabs 09/26/21 methylprednisolone 4 mg tablets in 4 mg PO DIRECTED #21 tabs 11/06/21 a dose pack indomethacin 50 mg capsule 50 mg PO TID #15 caps 11/18/21 indomethacin 50 mg capsule 50 mg PO TID 5 days #15 caps 11/18/21 indomethacin 50 mg capsule 50 mg PO TID PRN pain, moderate 01/01/22 #20 caps Allergies Allergy/AdvReac Type Severity Reaction Status Date / Time No Known Allergies Allergy Verified 01/01/22 12:46 PFSH [facility] Social History Smoking Status: Never smoker alcohol intake: never current occupational status: unemployed Travel in the last 8 weeks: None ROS Obtained: Yes All systems reviewed & no additional complaints except as documented Constitutional Constitutional: Denies chills and Denies fever(s) Integumentary/Breasts Skin/Breast: Denies redness, Denies rash and Denies wounds Neurologic Neurologic: Denies paresthesias Physical Exam General General appearance: alert and in no apparent distress Head Head exam: atraumatic, normocephalic and normal inspection Eye Eye exam: Present
[2022-01-01 12:44] VITALS: BP 165/80; PULSE 96; RESP 18; TEMP 36.7; O2SAT 98; BMI 34.9
[2022-01-01 13:05] VITALS: BP 165/80; PULSE 96; RESP 18; TEMP 36.7
== END 2022-01-01 13:08 | disposition home or self-care (01) ==
PROVIDERS: Emergency Provider Nurse Practitioner Family; PCP Nurse Practitioner Family
DX: M10.9 Gout, unspecified (principal)
CPT/HCPCS: 96372; 99212; G0463

== ENCOUNTER 2022-05-10 11:52 | Emergency (ER) | payer BC, SELFPAY ==
[2022-05-10 13:10] VITALS: BP 145/79; PULSE 104; RESP 20; TEMP 37.1; O2SAT 98; BMI 39.8
--- NOTE | 2022-05-10 13:38 | EXP.UTC ---
Discharge Plan Disposition Patient Disposition: Home, Self-Care Condition: Good Prescriptions Prescriptions: New benzonatate [benzonatate] 100 mg capsule 100 mg PO TIDP PRN (Reason: Cough) Qty: 30 0RF methylprednisolone 4 mg Tablets,Dose Pack 4 mg PO DIRECTED Qty: 21 0RF amoxicillin [amoxicillin] 875 mg tablet 875 mg PO Q12H Qty: 20 0RF No Action colchicine 0.6 MG tablet 0.6 mg PO Q1H PRN (Reason: Moderate Pain) Qty: 3 0RF Rx Instructions: as needed for left elbow gout attack amlodipine 5 mg tablet 5 mg PO DAILY Label Comments: TAKE 1 TABLET BY MOUTH ONCE DAILY allopurinol 300 mg tablet 300 mg PO DAILY colchicine 0.6 mg tablet 0.6 mg PO DAILY Label Comments: TAKE 1 TABLET BY MOUTH ONCE DAILY Referrals Follow up/Referrals: Aranza Parnell APRN [Primary Care Provider] - See instructions Activity Restrictions/Add. Instructions Additional Instructions/Restrictions: Drink plenty of fluids. Take tylenol or ibuprofen for pain or fever. Take the medications as directed. Follow up with your regular doctor. GO TO THE ER FOR ANY WORSENING SYMPTOMS Clinical Impressions Clinical Impression: Sinusitis, Pharyngitis Instructions Patient Instructions: DI for Sinusitis Discharge ED Provider: Gabriel Frank [facility] General Stated complaint: Sore throat congestion drainage Mode of Arrival: Ambulatory Source of Information: Patient Limitations: No Limitations Time Seen by Provider: 05/10/22 13:38 Description of Symptoms (Recalled from Triage Doc. by RN): sore throat, sinus pressure, ESCOBAR, and chest congestion HEENT Symptoms (Recalled from RN notes): Yes Resp Symptoms (Recalled from RN notes): No Skin Symptoms (Recalled from RN notes): No MS Symptoms (Recalled from RN notes): No Functional Status (Recalled from RN notes): n/a Related Data Home Medications Medication Instructions Recorded Confirmed allopurinol 300 mg tablet 300 mg PO DAILY . 05/10/22 05/10/22 amlodipine 5 mg tablet 5 mg PO DAILY . 05/10/22 05/10/22 colchicine 0.6 mg tablet 0.6 mg PO DAILY / 05/10/22 05/10/22 Previous Rx's Medication Instructions Recorded colchicine 0.6 mg tablet 0.6 mg PO Q1H PRN Moderate Pain #3 01/01/18 tabs amoxicillin 875 mg tablet 875 mg PO Q12H #20 tabs 05/10/22 benzonatate 100 mg capsule 100 mg PO TIDP PRN Cough #30 caps 05/10/22 methylprednisolone 4 mg tablets in 4 mg PO DIRECTED #21 tabs 05/10/22 a dose pack Allergies Allergy/AdvReac Type Severity Reaction Status Date / Time No Known Allergies Allergy Verified 05/10/22 13:41 Worker's Comp Is this a Worker's Comp case?: No [facility] Disclaimer: The information contained in this section may have been updated after the patient was seen, as this information can be updated by other users. Social History Smoking Status: Never smoker alcohol intake: never current occupational status: unemployed Travel in the last 8 weeks: None ROS Obtained: Yes All systems reviewed & no additional complaints except as documented Constitutional Constitutional: Reports poor appetite Eyes Eyes: Reports system reviewed and no additional complaints, except as documented ENT Ears, Nose, Mouth, and Throat: Reports as per HPI Cardiovascular Cardiovascular: Reports system reviewed and no additional complaints, except as documented and Denies chest pain Respiratory Respiratory: Denies shortness of breath, Denies chest congestion, Reports cough, Denies stridor and Denies wheezing Gastrointestinal Gastrointestingal: Reports system reviewed and no additional complaints, except as documented; Denies abdominal pain, diarrhea or vomiting Musculoskeletal Musculoskeletal: Reports system reviewed and no additional complaints, except as documented and Denies arthralgias Integumentary/Breasts Skin/Breast: Reports system reviewed and no additional co
[2022-05-10 13:46] LABS: UTC Strep Screen (Rapid) Negative (Negative)
[2022-05-10 14:06] VITALS: BP 145/79; PULSE 104; RESP 20; TEMP 37.1; O2SAT 98
== END 2022-05-10 14:05 | disposition home or self-care (01) ==
PROVIDERS: Emergency Provider Nurse Practitioner Family; PCP Nurse Practitioner Family
DX: J01.90 Acute sinusitis, unspecified (principal); J02.9 Acute pharyngitis, unspecified
CPT/HCPCS: 87880; 99212; 99214; G0463

== ENCOUNTER → 2022-08-23 11:52 | Outpatient (CLI) | payer BC, SELFPAY ==
[2022-08-23 13:19] LABS: Uric Acid 5.2 mg/dl (3.5-8.5)
== END ==
PROVIDERS: PCP Nurse Practitioner Family; Visit Provider Physician Assistant
DX: M1A.09X0 Idiopathic chronic gout, multiple sites, without tophus (tophi) (principal)
CPT/HCPCS: 36415; 84550

== ENCOUNTER 2023-10-03 10:49 | Outpatient (CLI) | payer BC, SELFPAY ==
[2023-10-03 12:33] LABS: Alanine Aminotransferase 23 U/L (12-78); Albumin Level 4.1 g/dl (3.5-5.0); Albumin/Globulin Ratio 1.5 (1.1-1.8); Alkaline Phosphatase 77 U/L (38-126); Anion Gap 12.9 mEq/L (5-15); Aspartate Amino Transferase 37 U/L (17-59); Bilirubin,Total 0.6 mg/dl (0.2-1.3); Blood Urea Nitrogen 15 mg/dl (9-20); Calcium 9.1 mg/dl (8.4-10.2); Carbon Dioxide 29 mmol/L (22.0-30.0); Chloride 97 mmol/L (98-107); Estimated Glomerular Filt Rate 77 ml/min (>60); GFR (African American) 93 ML/MIN (>60); Globulin 2.8 g/dL (1.3-3.2); Glucose 91 mg/dl (74-100); Potassium 3.9 mmoL/L (3.5-5.1); Sodium 135 mmol/L (136-145); Total Protein,Serum 6.9 g/dl (6.3-8.2)
== END 2023-10-03 23:59 | disposition home or self-care (01) ==
LOC: LAB 10:51
PROVIDERS: PCP Nurse Practitioner Family; Visit Provider Physician Assistant
DX: R19.7 Diarrhea, unspecified (principal)
CPT/HCPCS: 36415; 80053